=== PATIENT | male | born 2000 | race African-American/Black ===

== ENCOUNTER 2020-03-23 09:48 | Emergency (ER) | payer OTHER, SELFPAY ==
[2020-03-23 09:51] VITALS: BP 152/77; PULSE 76; RESP 14; TEMP 36.2; O2SAT 100
--- NOTE | 2020-03-23 10:59 | ED.EAR ---
HPI - Ear Problem General Chief complaint: Ear <Caitlin Painter PA-C - Last Filed: 03/23/20 11:06> Stated complaint: earache <Caitlin Painter PA-C - Last Filed: 03/23/20 11:06> Time Seen by Provider: 03/23/20 10:13 <Caitlin Painter PA-C - Last Filed: 03/23/20 11:06> Source: patient <DEEPAK Wolf Last Filed: 03/23/20 11:06> Mode of arrival: ambulatory <Caitlin Painter PA-C - Last Filed: 03/23/20 11:06> Limitations: no limitations <Caitlin Painter PA-C - Last Filed: 03/23/20 11:06> History of Present Illness HPI Narrative: This is a 19 year old male that presents to the ER for left ear discomfort since yesterday. Reports a sensation of fullness in the ear and congestion. Reports last night he noted some bleeding from the ear. He does use Q-tips in the ears. Denies fever or drainage. <Caitlin Painter PA-C - Last Filed: 03/23/20 11:06> Related Data Home medications: Home Medications Medication Instructions Recorded Confirmed No Home Medications 03/23/20 03/23/20 <Caitlin Painter PA-C - Last Filed: 03/23/20 11:06> Allergies/adverse reactions: Allergies Allergy/AdvReac Type Severity Reaction Status Date / Time No Known Allergies Allergy Verified 03/23/20 09:54 <Caitlin Painter PA-C - Last Filed: 03/23/20 11:06> Review of Systems Review of Systems: Narrative: CONSTITUTIONAL: Denies fever ENT: Reports otalgia. <Caitlin Painter PA-C - Last Filed: 03/23/20 11:06> All systems reviewed & are unremarkable except as noted in HPI and below <Caitlin Painter PA-C - Last Filed: 03/23/20 11:06> [facility] Past Medical History Medical History: Medical History (Updated 03/23/20 @ 11:06 by Caitlin Painter PA-C) History of cleft palate with cleft lip No active medical problems <Caitlin Painter PA-C - Last Filed: 03/23/20 11:06> Social History Social History: Social History Gender identity (if verbalized by the patient): Male <Caitlin Painter PA-C - Last Filed: 03/23/20 11:06> Exam Narrative: Exam Narrative: GENERAL: Well-appearing, well-nourished, and in no acute distress. HEAD: Normocephalic, atraumatic. EYES: EOMI. ENT: Bilateral TMs pearly morales non-bulging. Bilateral external auditory canals without erythema or edema. Left external auditory canal with small area dried blood NECK: Supple. No adenopathy or masses. EXTREMITIES: Normal range of motion. No edema. SKIN: Warm, dry, no rash. NEURO: No focal deficits. Alert and oriented x3. PSYCH: Normal mood and affect <Caitlin Painter PA-C - Last Filed: 03/23/20 11:06> Course Vital Signs Vital signs: Vital Signs Temperature 97.2 F L 03/23/20 09:51 Pulse Rate 76 03/23/20 09:51 Respiratory Rate 14 03/23/20 09:51 Blood Pressure 152/77 H 03/23/20 09:51 Pulse Oximetry 100 03/23/20 09:51 Temperature 97.2 F L 03/23/20 09:51 Pulse Rate 76 03/23/20 09:51 Respiratory Rate 14 03/23/20 09:51 Blood Pressure 152/77 H 03/23/20 09:51 Pulse Oximetry 100 03/23/20 09:51 <Caitlin Painter PA-C - Last Filed: 03/23/20 11:06> Vital Signs Temperature 97.2 F L 03/23/20 09:51 Pulse Rate 76 03/23/20 09:51 Respiratory Rate 14 03/23/20 09:51 Blood Pressure 152/77 H 03/23/20 09:51 Pulse Oximetry 100 03/23/20 09:51 Temperature 97.2 F L 03/23/20 09:51 Pulse Rate 76 03/23/20 09:51 Respiratory Rate 14 03/23/20 09:51 Blood Pressure 152/77 H 03/23/20 09:51 Pulse Oximetry 100 03/23/20 09:51 <Leesa Contreras MD - Last Filed: 03/23/20 13:58> Medical Decision Making MDM Narrative Medical decision making narrative: Patient presents to the emergency department for congestion in the left ear. He is afebrile and nontoxic-appearing. Also was noting some bleeding from the ear. Reports he does use Q-tips in the ears. Likely had scratched the auditory canal, has a small area of dried blood in the ear. No evid
== END 2020-03-23 11:26 | disposition home or self-care (01) ==
PROVIDERS: Emergency Provider General Practice
DX: H93.8X2 Other specified disorders of left ear (principal); S00.412A Abrasion of left ear, initial encounter; X58.XXXA Exposure to other specified factors, initial encounter
CPT/HCPCS: 99281

== ENCOUNTER 2021-05-13 15:54 | Emergency (ER) | payer OTHER, SELFPAY ==
--- NOTE | ~2021-05-13 | XR_ITS ---
LUMBAR SPINE INDICATION: Low back pain TECHNIQUE: 3 views lumbar spine COMPARISON: None FINDINGS: No fracture, subluxation or dislocation. No evidence for spondylolysis or spondylolisthesi s. Vertebral bodies and disk spaces are preserved. IMPRESSION: 1: No acute abnormality of the lumbar spine identified. Reviewed, dictated and finalized at location A.
--- NOTE | ~2021-05-13 | CT_ITS ---
EXAMINATION: CT cervical spine wo con DATE: 05/13/2021 19:08 INDICATION: Neck pain TECHNIQUE: Computed tomography (CT) of the cervical spine was performed without intravenous contrast. The dose-length product was 515 mGy-cm. Automated exposure control and iterative reconstruction tech nique were employed. COMPARISON: None FINDINGS: Straightening of cervical lordosis. Vertebral body and disc heights are preserved. No evide nce for perched facet. Craniovertebral junction within normal limits. Odontoid process within normal limits. No evidence for perched facet. Lung apices are normal. No significant paraspinal soft tissue abnormality. IMPRESSION: 1. No acute abnormality of the cervical spine. Reviewed, dictated and finalized at location A.
--- NOTE | ~2021-05-13 | XR_ITS ---
XR wrist LT min 3V 05/13/2021 19:03 INDICATION: Left wrist pain PROCEDURE: 4 views left wrist COMPARISON: No prior studies for comparison. FINDINGS: Fracture, dislocation or subluxation is not identified. The soft tissues appear within norm al limits. No foreign bodies are identified. IMPRESSION: 1: NO ACUTE BONE OR JOINT ABNORMALITY IDENTIFIED. Reviewed, dictated and finalized at location A.
[2021-05-13 16:10] VITALS: BP 161/91; PULSE 77; RESP 18; TEMP 36.2; O2SAT 100
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
[2021-05-13 20:06] VITALS: BP 132/88; PULSE 61; RESP 15; O2SAT 100
== END 2021-05-13 20:08 | disposition home or self-care (01) ==
PROVIDERS: Emergency Provider Family Medicine; PCP Nurse Practitioner Adult Health
DX: S16.1XXA Strain of muscle, fascia and tendon at neck level, initial encounter (principal); S39.012A Strain of muscle, fascia and tendon of lower back, initial encounter; S69.92XA Unspecified injury of left wrist, hand and finger(s), initial encounter; E11.9 Type 2 diabetes mellitus without complications; V43.52XA Car driver injured in collision with other type car in traffic accident, initial encounter; Z79.84 Long term (current) use of oral hypoglycemic drugs
CPT/HCPCS: 72100; 72110; 72125; 73110; 99284

== ENCOUNTER 2025-05-19 09:55 | Emergency (ER) | payer SELFPAY ==
[2025-05-19 10:01] VITALS: BP 167/102; PULSE 89; RESP 18; TEMP 36.4; O2SAT 98
--- OUTSIDE RECORDS SUMMARY | 2025-05-19 11:21 | XMS_ITS | Clinical Summary ---
Author Organization [facility] Address Formerly [facility], [facility] [place] [address] Care Team Providers Care [place] Master Name Role Phone Unavailable Primary Care Provider Unavailabl e Immunizations Immunization Administration Dates Next Due Dtap (Acel-Immune) 04/06/2004, 4,09/13/2000,10/1999 HPV 11/26/2011 HPV GARDASIL 9-VALENT 04/15/2015 HPV4 (Gardasil) 11/02/2013 Hepatitis A 11/15/2007,04/06/2004 Hepatitis B Pediatric 1999 Hib (Generic) 04/06/2004,09/10/2003 Hib-Hepatitis B (Comvax) 09/13/2000,01/05/2000 Influenza (Generic) 08/12/2011 Influenza Adult (Generic) 10/11/2016 MENINGOCOCCAL A C Y&W-135 oligosaccharide (MENVEO) 08/12/2011 MMR (MMRII) 04/09/2005,09/10/2003 Meningcoccal Group B (Bexser o)(aka Meningitis) 11/19/2016,10/11/2016 Meningococcal (Menactra) 10/11/2016 PFIZER COVID-19 (ORIGINAL FO RMULATION, PURPLE CAP) mRNA, LNP-S, PF, 30 MCG/0.3 ML DOSE 07/28/2021,07/07/2021 Pneumococcal (Prevnar 7) 09/10/2003 Polio IPV (Ipol) 04/09/2005, 4,09/13/2000,10/1999 Tdap (Generic) 08/12/2011 Varicella (Varivax) 08/12/2011,09/10/2003 Social History Tobacco Use Types Packs/Day Years Used Date Smoking Tobacco: Never Assessed Sex and Gender Information Value Date Recorded Sex Assigned at Not on file Legal Sex Male 7:27 PM CDT Gender Identity Not on file Sexual Orientation Not on file Plan of Treatment Health Maintenance Due Date Last Done Comments Annual Physical 2002 Hepatitis C 2017 DTaP, Tdap and Td Vaccines (6 - Td or Tdap) 08/12/2021 08/12/2011, 04/06/2004, 09/10/2003, Additional history exists COVID-19 Vaccine ( season) 2025 07/28/2021, 07/07/2021 Hepatitis B Vaccines Completed 09/13/2000, 01/05/2000, 1999 Pneumococcal Vaccine: Pediatrics (0 to 5 Years) and At-Risk Patients (6 to 49 Years) Aged Out 09/10/2003 No longer eligible based on patient's age to complete this topic HPV Vaccines Completed 04/15/2015, 10/07, 11/26/2011 Meningococcal Vaccine Completed 10/11/2016, 011 Meningococcal B Vaccine Completed 11/19/2016, 10/11 RSV Immunizations Under 20 Months Aged Out No longer eligible based on patient's age to complete this topic
[2025-05-19 11:31] LABS: Add Urine Microscopic? YES; Appearance Urine Clear (Clear); Glucose Urine UA 3+ mg/dL (Negative); Leukocyte Esterase Ur 1+ LEU/UL (Negative); Nitrate Urine Negative (Negative); Specific Grav Ur 1.037 (1.001-1.035)
--- NOTE | 2025-05-19 11:56 | ED_ITS ---
HPI - Male Genitourinary General Chief complaint: Urogenital-Male Stated complaint: possible sti Time Seen by Provider: 05/19/25 11:09 Source: patient Mode of arrival: ambulatory History of Present Illness HPI Narrative: Patient presents with a red swollen foreskin that he states started today and was otherwise fine yesterday. Concern for sexually transmitted infection. He is also wondering if using baby wipes on the area could cause his symptoms. Denies any flank pain. Feels like the area has source. He is sexually active with women, 1 female partner in the past month. He denies any penile discharge. He has been having dysuria as well as urinary urgency and frequency but denies any hematuria. He has a history of diabetes mellitus but not on insulin. He states he used to be on pills but does not have any any longer. Similarly, he states he has a history hypertension but not currently on medications and needs a refill of this as well although he does not know when he used to be on. He does not currently have a primary care physician and is in need of 1 as his moved away. Related Data Home Medications ?Medication ?Instructions ?Recorded ?Confirmed ?Last Taken ?Type metformin 500 mg tablet,extended mg PO BID 05/13/21 U nknown History release 24 hr Allergies Allergy/AdvReac Type Severity Reaction Status Date / Time No Known Allergies Allergy Verified 05/19/25 11:11 [facility] Past Medical History Medical History (Updated 05/20/25 @ 06:19 by Omaira Diehl MD) Non-insulin dependent diabetes mellitus Hypertension History of cleft palate with cleft lip Social History Social History Gender identity (if verbalized by the patient): Male Sexual Orientation (if Verbalized by the Patient): Straight or Heterosexual Exam 2 Narrative: GENERAL: Well-appearing, well-nourished, and in no acute distress. HEAD: Normocephalic, atraumatic. EYES: Non injected, non icteric ENT: Nares clear, no rhinorrhea or epistaxis. Gross auditory acuity intact. Cleft palate. NECK: Supple. No meningismus. CHEST: Speaking in full sentences. No respiratory distress. HEART: Regular rate and rhythm. . ABDOMEN: Obese but soft, nondistended. No rigidity or guarding. Not peritoneal. EXTREMITIES: Normal range of motion. No lower extremity edema. SKIN: Warm, dry. NEURO: No focal deficits. Alert and oriented. Answering questions. Following commands. Normal speech without aphasia or dysarthria. : Foreskin is retracted and is erythematous with white patches as well as creamy white discharge. PSYCH: Congruent mood and affect. Course Vital Signs Vital signs: Vital Signs Temperature 97.5 F L 05/19/25 10:01 Pulse Rate 89 05/19/25 10:01 Respiratory Rate 18 05/19/25 10:01 Blood Pressure 167/102 H 05/19/25 10:01 Pulse Oximetry 98 05/19/25 10:01 Oxygen Delivery Room Air 05/19/25 10:01 Temperature 97.5 F L 05/19/25 10:01 Pulse Rate 71 05/19/25 14:28 Respiratory Rate 14 05/19/25 14:28 Blood Pressure 164/107 H 05/19/25 14:28 Pulse Oximetry 99 05/19/25 14:28 Oxygen Delivery Room Air 05/19/25 10:01 MDM - Male Genitourinary MDM Narrative Medical decision making narrative: This patient is a 24 year old male who comes to the emergency department with a painful swollen foreskin. In the emergency department he is afebrile with vital signs that show hypertension. He states he has a history of hypertension and took medication when he had it but ran out and does not currently have a primary care physician. Does not know which medication it was and unable to identify this per review of his home medication. He also states he has a history of ekj-wgzqykw-[id number] diabetes but he does not know the medication he used to be on. I asked if it was metformin and he does not know although this is listed in his medication list with a? And no dosing information. Physical exam suggests balanitis. Given patient is diabetic and the association with this condition, POC glucose is checked and noted to be 311 mg/dL. Will obtain labs. No ketonuria. Urinalysis without bacteria although there are some other markers of abnormality and there is glucosuria. It does reflex to culture. Given he does endorse symptoms, although felt to likely be due to the balanitis, out of an abundance of precaution will treat as a UTI in the interim. 1L IV fluids given. CBC unremarkable except mild abnormalities on the differential. Hemoglobin A1c is nearly 12% (average daily glucose 295mg/dL). Beta hydroxybutyrate is normal. Chemistry shows hyperglycemia without anion gap acidosis. For his hypertension, given comorbidities of DM with trace proteinuria, will start lisinopril 10mg Qday. Patient is prescribed Sitz baths twice daily while inflammation persists and is counseled on hygiene; cleaning between the foreskin and glans with a Q-tip and irrigating with water until total resolution. He is given a prescription for Sitz baths as a DME prescription. He is also prescribed clotrimazole 1% to be applied topically to the glans every 12 hours until resolution as well as topical triple antibiotic ointment 4 times daily. Advised follow-up with primary care physician in general for the HTN and DM but also for this acute issue as, if no resolution, a second-line agent would be nystatin cream 100,000 units/g if infection is recurrent after clotrimazole therapy. Given contact information for a primary care physician given he does not have 1. Otherwise stable for discharge. Differential Diagnosis Differential diagnosis: Likely urinary tract infection, urethritis, genital herpes simplex and other (STIs; balanitis/posthitis/balanoposthitis) Medical Records Attestation: I reviewed the patient's medical records. Medical records narrative: as above Lab Data Attestation: I reviewed the patient's lab results. Lab results narrative: STI testing negative. 05/19/25 13:11 05/19/25 13:10 Labs: Lab Results 05/19/25 05/19/25 05/19/25 Range/Units 11:13 13:03 13:10 WBC (4.5-10.0) K/mm3 RBC (4.6-6.20) M/mm3 Hgb (14.0-18.0) g/dL Hct (42.0-52.0) % MCV (80-100) fl MCH (26-34) pg MCHC (32-36) g/dl RDW (11.5-14.5) % Plt Count (150-375) k/mm3 MPV (7.4-10.4) fl Immature Gran % (Auto) (0-0.5) % Neut % (Auto) (45.5-73.1) % Lymph % (Auto) (18.3-44.2) % [place] % (Auto) (2.6-8.5) % Eos % (Auto) (0-4.4) % Baso % (Auto) (0.2-1.2) % Lymph # (Auto) (0.9-3.2) K/mm3 [place] # (Auto) (0.1-0.6) K/mm3 Eos # (Auto) (0-0.3) K/mm3 Baso # (Auto) (0.0-0.1) K/mm3 Abs Immat Gran (auto) (0.00-0.031) K/mm3 Absolute Neuts (auto) (1.3-6.7) K/mm3 Absolute Nucleated RBC (0.0-0.012) K/mm3 Nucleated RBC % (0.0-0.2) % Sodium 134 L (137-145) mmol/L Potassium 4.2 (3.4-5.0) mmol/L Chloride 98 (98-107) mmol/L Carbon Dioxide 26 (22-30) mmol/L Anion Gap 10 (4-12) mmol/L BUN 12 (9-20) mg/dL Creatinine 0.80 (0.7-1.3) mg/dL Estim Creat Clear Calc 171 ml/min Estimated GFR > 60 (59 - ) Glucose 293 H (65-110) mg/dL POC Capillary Glucose 311 H (65-105) mg/dl Hemoglobin A1c 11.9 H (<5.7) % Calcium 9.2 (8.4-10.2) mg/dL Magnesium 1.9 (1.6-2.3) mg/dL Total Bilirubin 0.5 (0.2-1.3) mg/dL AST 29 (17-59) U/L ALT 20 (6-50) U/L Alkaline Phosphatase 92 (38-126) U/L Total Protein 8.9 H (6.3-8.2) g/dL Albumin 4.4 (3.5-5.1) g/dL Beta-Hydroxybutyrate/Acetoacetate 0.23 (0.02-0.27) mmol/L Urine Color Yellow (Yellow) Urine Appearance Clear (Clear) Urine pH 5.5 (5.0-9.0) Ur Specific [place] 1.037 H (1.001-1.035) Urine Protein Trace (Negative) mg/dL Urine Glucose (UA) 3+ H (Negative) mg/dL Urine Ketones Negative (Negative) mg/dL Ur Blood (Man) Trace (Negative) Urine Nitrate Negative (Negative) Urine Bilirubin Negative (Negative) Urine Urobilinogen 0.2 (<2.0) mg/dL Leukocyte Esterase Rfl 1+ H (Negative) OVIDIO/UL Urine RBC 3-5 H (0-2) /hpf Urine WBC 11-20 H (0-3) /hpf Ur Squamous Epith Cells None seen (Few) /hpf Urine Bacteria None seen /hpf Urine Casts 3-5 C. trachomatis (PCR) Not detected (NOT DETECTE) N. gonorrhoeae (PCR) Not detected (NOT DETECTE) T. vaginalis (PCR) Not detected (NOT DETECTE) 05/19/25 Range/Units 13:11 WBC 5.7 (4.5-10.0) K/mm3 RBC 5.06 (4.6-6.20) M/mm3 Hgb 14.2 (14.0-18.0) g/dL Hct 42.1 (42.0-52.0) % MCV 83.2 (80-100) fl MCH 28.1 (26-34) pg MCHC 33.7 (32-36) g/dl RDW 13.0 (11.5-14.5) % Plt Count 233 (150-375) k/mm3 MPV 10.9 H (7.4-10.4) fl Immature Gran % (Auto) 0.2 (0-0.5) % Neut % (Auto) 53.2 (45.5-73.1) % Lymph % (Auto) 36.0 (18.3-44.2) % [place] % (Auto) 9.7 H (2.6-8.5) % Eos % (Auto) 0.5 (0-4.4) % Baso % (Auto) 0.4 (0.2-1.2) % Lymph # (Auto) 2.04 (0.9-3.2) K/mm3 [place] # (Auto) 0.6 (0.1-0.6) K/mm3 Eos # (Auto) 0.0 (0-0.3) K/mm3 Baso # (Auto) 0.0 (0.0-0.1) K/mm3 Abs Immat Gran (auto) 0.01 (0.00-0.031) K/mm3 Absolute Neuts (auto) 3.0 (1.3-6.7) K/mm3 Absolute Nucleated RBC 0.000 (0.0-0.012) K/mm3 Nucleated RBC % 0.0 (0.0-0.2) % Sodium (137-145) mmol/L Potassium (3.4-5.0) mmol/L Chloride (98-107) mmol/L Carbon Dioxide (22-30) mmol/L Anion Gap (4-12) mmol/L BUN (9-20) mg/dL Creatinine (0.7-1.3) mg/dL Estim Creat Clear Calc ml/min Estimated GFR (59 - ) Glucose (65-110) mg/dL POC Capillary Glucose (65-105) mg/dl Hemoglobin A1c (<5.7) % Calcium (8.4-10.2) mg/dL Magnesium (1.6-2.3) mg/dL Total Bilirubin (0.2-1.3) mg/dL AST (17-59) U/L ALT (6-50) U/L Alkaline Phosphatase (38-126) U/L Total Protein (6.3-8.2) g/dL Albumin (3.5-5.1) g/dL Beta-Hydroxybutyrate/Acetoacetate (0.02-0.27) mmol/L Urine Color (Yellow) Urine Appearance (Clear) Urine pH (5.0-9.0) Ur Specific [place] (1.001-1.035) Urine Protein (Negative) mg/dL Urine Glucose (UA) (Negative) mg/dL Urine Ketones (Negative) mg/dL Ur Blood (Man) (Negative) Urine Nitrate (Negative) Urine Bilirubin (Negative) Urine Urobilinogen (<2.0) mg/dL Leukocyte Esterase Rfl (Negative) OVIDIO/UL Urine RBC (0-2) /hpf Urine WBC (0-3) /hpf Ur Squamous Epith Cells (Few) /hpf Urine Bacteria /hpf Urine Casts C. trachomatis (PCR) (NOT DETECTE) N. gonorrhoeae (PCR) (NOT DETECTE) T. vaginalis (PCR) (NOT DETECTE) Discharge Plan Discharge Clinical Impression: Abnormal urinalysis, Glucosuria, Balanitis, Hemoglobin A1C greater than 9%, indicating poor diabetic control, Hypertension, Dysuria Patient Disposition: Home Condition: Stable Instructions: Antibiotic Form, Urinary Tract Infection in Men (DC), Balanitis (ED), Dysuria (ED), Hypertension (ED), Diabetic Hyperglycemia (ED), Mediterranean Diet (DC), Hypertension and Diabetes (ED) Additional Instructions: Your hemoglobin A1c which measures your average blood glucose over >1 month is 11.9% which means on an average day your blood glucose is approximately 300mg/dL (normal is <125). This makes it more likely that you will have infections like this. You are being prescribed a pill for diabetes. For the infection/inflammation of the penis, you are being prescribed Sitz baths twice daily while inflammation persists. Hygiene is very important: clean between the foreskin and glans with a Q-tip and irrigate with water until total resolution.You are also being prescribed a topical treatment (clotrimazole) and triple antibiotic ointment. It is also important that you manage your blood pressure. You are being prescribed a 30 day course of medication for this. Follow-up with a primary care physician. Because you do not have 1, the name of a doctor is listed below. Your urine showed a potential urinary tract infection; because you are having symptoms, will treat with an oral antibiotic. Pyridium/phenazopyridine can help with the pain you are experiencing while urinating. It can discolor your urine and tears (turn them orange). Do not wear contact lenses while taking this medication. Patient Language: [place] Prescriptions: New lisinopril 10 mg tablet 10 mg PO DAILY Qty: 30 0RF metformin 500 mg tablet 500 mg PO BID 30 Days Qty: 60 0RF clotrimazole 1 % cream 1 applic topical BID Qty: 30 0RF Rx Instructions: apply topically to the glans until resolution Triple Antibiotic 3.5mg-400 unit- 5,000 unit/gram ointment 1 applic topical QID Qty: 15 0RF nitrofurantoin monohyd/m-cryst [Macrobid] 100 mg capsule 100 mg PO Q12H 3 Days Qty: 6 0RF Rx Instructions: must administer with a meal/food phenazopyridine [Pyridium] 100 mg tablet 100 mg PO TID PRN (Reason: pain) Qty: 5 0RF Rx Instructions: first dose in ED No Action metformin 500 mg tablet extended release 24 hr PO BID Follow-up/Referrals: PHYSICIAN,RETAIL SALES PROFESSIONAL [Primary Care Provider, Internal Medicine] Elvin Pierre MD [Physician, Family Practice] Stand Alone Forms: Work/School Release IP Time of Disposition: 14:19
[2025-05-19 12:24] VITALS: BP 160/104; PULSE 82; RESP 15; O2SAT 100
[2025-05-19 12:38] LABS: Trichomonas Vag PCR NOT DETECTED (NOT DETECTE)
[2025-05-19] MEDS: SODIUM CHLORIDE 0.9% IV 1,000 ML 999 ML IV CONT (13:12)
[2025-05-19] MEDS: ACETAMINOPHEN 500 MG TABLET 1000 MG PO (13:13)
[2025-05-19 13:17] LABS: Hematocrit 42.1 % (42.0-52.0); Hemoglobin 14.2 g/dL (14.0-18.0); Immature Granulocyte Percent A 0.2 % (0-0.5); Lymphocytes Absolute Auto 2.04 K/mm3 (0.9-3.2); Mean Corpuscular HGB Conc 33.7 g/dl (32-36); Mean Corpuscular Hemoglobin 28.1 pg (26-34); Mean Corpuscular Volume 83.2 fl (80-100); Nucleated Red Blood Cells Absolute Auto 0.000 K/mm3 (0.0-0.012); Nucleated Red Blood Cells Perc 0.0 % (0.0-0.2); Platelet Count Result 233 k/mm3 (150-375); Red Blood Count 5.06 M/mm3 (4.6-6.20); White Blood Count 5.7 K/mm3 (4.5-10.0)
[2025-05-19 13:30] LABS: Hemoglobin A1C 11.9 % (<5.7)
[2025-05-19 13:41] VITALS: BP 171/106; PULSE 78; RESP 17; O2SAT 100
[2025-05-19 13:45] LABS: Beta-Hydroxybutyrate/Acetoace. 0.23 mmol/L (0.02-0.27)
[2025-05-19 13:56] LABS: Alanine Aminotransferase 20 U/L (6-50); Albumin Level 4.4 g/dL (3.5-5.1); Alkaline Phosphatase 92 U/L (38-126); Anion Gap 10 mmol/L (4-12); Aspartate Amino Transferase 29 U/L (17-59); Bilirubin,Total 0.5 mg/dL (0.2-1.3); Blood Urea Nitrogen 12 mg/dL (9-20); Calcium 9.2 mg/dL (8.4-10.2); Carbon Dioxide 26 mmol/L (22-30); Chloride 98 mmol/L (98-107); Estimated CRCL calculation 171 ml/min; Estimated Glomerular Filt Rate > 60; Glucose 293 mg/dL (65-110); Magnesium 1.9 mg/dL (1.6-2.3); Potassium 4.2 mmol/L (3.4-5.0); Sodium 134 mmol/L (137-145); Total Protein 8.9 g/dL (6.3-8.2)
[2025-05-19] MEDS: NITROFURANTOIN MONOHYD MACROCR 100 MG CAP PO (14:19)
[2025-05-19] MEDS: PHENAZOPYRIDINE HCL 100 MG TABLET PO (14:22)
[2025-05-19 14:28] VITALS: BP 164/107; PULSE 71; RESP 14; O2SAT 99
== END 2025-05-19 14:30 | disposition home or self-care (01) ==
PROVIDERS: Emergency Provider Student in an Organized Health Care Education/Training Program
DX: N48.1 Balanitis (principal); R82.998 Other abnormal findings in urine; E11.65 Type 2 diabetes mellitus with hyperglycemia; R30.0 Dysuria; I10 Essential (primary) hypertension; Z79.84 Long term (current) use of oral hypoglycemic drugs
CPT/HCPCS: 36415; 80053; 81001; 82010; 82948; 83036; 83735; 85025; 87086; 87491; 87591; 87661; 96360; 99283; A9270; J7030